=== PATIENT | male | born 1935 | race Caucasian/White ===

== ENCOUNTER → 2019-02-19 | Outpatient (CLI) | payer MEDICARE ==
[~2019-02-19] MED LIST: LEVO125T5 PO; OMEP10CA5 PO; POLY17PO5 PO
== END | disposition home or self-care (01) ==
LOC: RAD 06:45
PROVIDERS: ATTEND Pathology Hematology
DX: C15.5 Malignant neoplasm of lower third of esophagus (principal); K21.9 Gastro-esophageal reflux disease without esophagitis; E03.9 Hypothyroidism, unspecified; Z79.890 Hormone replacement therapy; Z79.899 Other long term (current) drug therapy; Z98.52 Vasectomy status; Z98.890 Other specified postprocedural states; Z80.1 Family history of malignant neoplasm of trachea, bronchus and lung
CPT/HCPCS: 36573; C1751

== ENCOUNTER 2019-04-06 08:03 | Outpatient (CLI) | payer MEDICARE ==
[2019-03-16 18:15] VITALS: BP 97/65
[~2019-04-06 08:03] MED LIST changes: +MIDO2.5T PO
== END 2019-04-06 23:59 | disposition home or self-care (01) ==
LOC: ROC 08:03
PROVIDERS: ATTEND Radiology Radiation Oncology
DX: C15.5 Malignant neoplasm of lower third of esophagus (principal)
CPT/HCPCS: G0463

== ENCOUNTER → 2019-04-19 | Outpatient (CLI) | payer MEDICARE | END | disposition home or self-care (01) | LOC: RAD 17:11 | PROVIDERS: ATTEND Nurse Practitioner | DX: M48.56XA Collapsed vertebra, not elsewhere classified, lumbar region, initial encounter for fracture (principal); M43.8X6 Other specified deforming dorsopathies, lumbar region; M48.061 Spinal stenosis, lumbar region without neurogenic claudication; M51.36 Other intervertebral disc degeneration, lumbar region; M25.78 Osteophyte, vertebrae; M47.896 Other spondylosis, lumbar region; M47.897 Other spondylosis, lumbosacral region; X58.XXXA Exposure to other specified factors, initial encounter; Y93.89 Activity, other specified; Y92.89 Other specified places as the place of occurrence of the external cause; Y99.8 Other external cause status | CPT/HCPCS: 72131 ==

== ENCOUNTER 2019-04-24 17:29 | Inpatient (IN) | payer MEDICARE ==
[~2019-04-24] VITALS: Ht 175.3 cm; Wt 66.8 kg
[2019-04-24] MEDS ORDERED: SODIUM CHLORIDE 0.9% 1,000 ML IV ONE (17:48)
--- NOTE | 2019-04-24 17:50 | NUR ---
patient brought to room via wheelchair, on monitor/placed in gown. given blankets, HOB at 90 degree to improve patient comfort. RN/MD at bedside.
[2019-04-24 18:11] LABS: BASOPHILS # (AUTO) 0.02 x10^3/uL (0-0.1); BASOPHILS % (AUTO) 1 % (0-1); EOSINOPHILS # (AUTO) 0.12 x10^3/uL (0-0.4); EOSINOPHILS % (AUTO) 3 % (1-7); LYMPHOCYTES # (AUTO) 0.84 x10^3/uL (1-3.4); LYMPHOCYTES % (AUTO) 17 % (22-44); MD NO; MEAN CORPUSCULAR HEMOGLOBIN 36.3 pg (27.5-34.5); MEAN CORPUSCULAR HGB CONC 33.6 g/dL (33.2-36.2); MEAN PLATELET VOLUME 6.3 fL (7.4-10.4); MONOCYTES # (AUTO) 0.48 x10^3/uL (0.2-0.8); MONOCYTES % (AUTO) 10 % (2-9); NEUTROPHILS # (AUTO) 3.41 x10^3/uL (1.8-6.8); NEUTROPHILS % (AUTO) 70 % (42-75); PLATELET COUNT 212 x10^3/uL (130-400); RED CELL DISTRIBUTION WIDTH 17.5 % (9.4-14.8)
--- NOTE | 2019-04-24 18:11 | NUR ---
LUNCH RN: PT PRESENTING WITH CONCERNED DAUGHTER FOR RECURRENT HYPOTENSION AND SYNCOPAL EPISODES WORSENING OVER LAST WEEK. PT DOESNT REMEMBER THESE EVENTS. NO N/V, DARK STOOLS, DIZZINESS REPORTED. 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 CONNECTED TO ALL MONITORING, VSS AT THIS TIME. A&OX4. FAMILY AT BEDSIDE. ORDERS RECEIVED. IV PLACED, LABS DRAWN. RAD COMPLETED. CALL LIGHT WITHIN REACH REPORT GIVEN TO PRIMARY RNLIZA.
--- NOTE | 2019-04-24 18:16 | NUR ---
report from Sophie Desouza RN. ivf started. vss. no needs expressed. call light within reach. pt resting in room with family at bs. awaiting cta.
[2019-04-24 18:24] LABS: ALANINE AMINOTRANSFERASE 25 U/L (12-78); ALBUMIN 3.3 g/dL (3.4-5.0); ANION GAP 6 mmol/L (5-15); CHLORIDE 106 mmol/L (98-107); CREATININE 1.46 mg/dL (0.7-1.3)
[2019-04-24 18:27] LABS: ALKALINE PHOSPHATASE 58 U/L (45-117); BILIRUBIN,TOTAL 0.6 mg/dL (0.2-1.0); TOTAL PROTEIN 7.1 g/dL (6.4-8.2); TROPONIN I < 0.015 ng/mL (0.000-0.045)
[2019-04-24] MEDS ORDERED: OMNIPAQUE 350 MG/ML, 100ML BOTTLE ONE (19:02)
--- NOTE | 2019-04-24 20:31 | NUR ---
pt resting in room. vss. no needs expressed. call light within reach. awaiting room assignment.
--- NOTE | 2019-04-24 20:48 | NUR ---
pt resting in room wtih family at bs. vss. bp improved. ivf running. no needs expressed. call light within reach. awaiting room assginment.
[2019-04-24] MEDS ORDERED: PROMETHAZINE 25 MG/ML, 1ML IM PRN (21:00)
[2019-04-24] MEDS ORDERED: POLYETHYLENE GLYCOL 17 GM PACKET PO PRN (21:00)
[2019-04-24] MEDS ORDERED: ACETAMINOPHEN 325 MG TABLET PO PRN (21:00)
[2019-04-24] MEDS ORDERED: morphine SULFATE 10 MG/ML, 1ML IVPush PRN (21:00)
[2019-04-24] MEDS ORDERED: ONDANSETRON ODT 4 MG PO PRN (21:00)
[2019-04-24] MEDS ORDERED: BISACODYL 10 MG SUPP PR PRN (21:00)
[2019-04-24] MEDS ORDERED: ONDANSETRON 2MG/ML, 2ML IVPush PRN (21:00)
[2019-04-24] MEDS ORDERED: hydrALAzine 20 MG/ML, 1ML IVPush PRN (21:00)
[2019-04-24 21:27] LABS: FREE T4 (FREE THYROXINE) 1.07 ng/dL (0.76-1.46)
--- NOTE | 2019-04-24 22:12 | NUR ---
reprot to [facility]. pt ready for transport.
[2019-04-24 22:33] VITALS: BP 132/84
[2019-04-24] MEDS: HEPARIN 5,000 UNITS/ML, 1ML SQ SCH (23:25)
[2019-04-24] MEDS: SODIUM CHLORIDE 0.9% 1,000 ML IV SCH (23:26)
[2019-04-24] MEDS: MIDODRINE 5 MG TABLET PO SCH (23:26)
[2019-04-24] MEDS: OXYcodone IR 5MG TABLET PO PRN (23:27)
[2019-04-25 00:08] LABS: MICROSCOPIC NOT IND
[2019-04-25 00:10] LABS: CULTURE INDICATED? NO
[2019-04-25] MEDS: LEVOTHYROXINE 125 MCG TABLET PO SCH (05:33)
[2019-04-25 06:16] LABS: BASOPHILS # (AUTO) 0.02 x10^3/uL (0-0.1); BASOPHILS % (AUTO) 1 % (0-1); EOSINOPHILS # (AUTO) 0.23 x10^3/uL (0-0.4); EOSINOPHILS % (AUTO) 6 % (1-7); LYMPHOCYTES # (AUTO) 0.72 x10^3/uL (1-3.4); LYMPHOCYTES % (AUTO) 20 % (22-44); MD NO; MEAN CORPUSCULAR HEMOGLOBIN 36.5 pg (27.5-34.5); MEAN CORPUSCULAR VOLUME 107.4 fL (81-97); MEAN PLATELET VOLUME 6.3 fL (7.4-10.4); MONOCYTES # (AUTO) 0.41 x10^3/uL (0.2-0.8); MONOCYTES % (AUTO) 12 % (2-9); NEUTROPHILS # (AUTO) 2.21 x10^3/uL (1.8-6.8); NEUTROPHILS % (AUTO) 62 % (42-75); PLATELET COUNT 166 x10^3/uL (130-400); RED BLOOD COUNT 3.05 x10^6/uL (4.38-5.82); RED CELL DISTRIBUTION WIDTH 17.1 % (9.4-14.8)
[2019-04-25 06:23] LABS: ALBUMIN 2.8 g/dL (3.4-5.0); ANION GAP 8 mmol/L (5-15); CALCIUM 7.9 mg/dL (8.5-10.1); CHLORIDE 110 mmol/L (98-107)
[2019-04-25 06:26] LABS: ALANINE AMINOTRANSFERASE 16 U/L (12-78); ALKALINE PHOSPHATASE 49 U/L (45-117); BILIRUBIN,TOTAL 0.5 mg/dL (0.2-1.0); CHOL/HDL RATIO 3.6; CHOLESTEROL, TOTAL 128 mg/dL (140-239); CREATININE 1.11 mg/dL (0.7-1.3); HDL CHOL % 28 % (26-37); HDL CHOLESTEROL (DIRECT) 36 mg/dL (40-60); LDL CHOLESTEROL,CALCULATED 76 mg/dL (54-169); LDL/HDL RATIO 2.1 (0.5-3.0); TOTAL PROTEIN 5.7 g/dL (6.4-8.2); TRIGLYCERIDES 80 mg/dL (50-200); VLDL CHOLESTEROL 16 mg/dL (0-25)
[2019-04-25 07:15] VITALS: BP 95/57
[2019-04-25] MEDS: SODIUM CHLORIDE 0.9% 1,000 ML IV SCH (08:00)
[2019-04-25] MEDS ORDERED: LEVOTHYROXINE 125 MCG TABLET PO SCH (09:00)
[2019-04-25] MEDS: POLYETHYLENE GLYCOL 17 GM PACKET PO SCH (09:00)
[2019-04-25] MEDS: DOCUSATE 100 MG CAPSULE PO PRN (09:19)
[2019-04-25] MEDS: HEPARIN 5,000 UNITS/ML, 1ML SQ SCH ×3 (09:20→22:32)
[2019-04-25] MEDS: OMEPRAZOLE 10 MG CAPSULE.DR PO SCH (09:20)
[2019-04-25 09:24] VITALS: BP 112/74
[2019-04-25 09:25] VITALS: BP 94/56
[2019-04-25 09:28] VITALS: BP 83/49
[2019-04-25] MEDS: MIDODRINE 5 MG TABLET PO SCH ×3 (09:36→21:06)
[2019-04-25 15:49] VITALS: BP 136/85
[2019-04-25 19:48] VITALS: BP 129/77
[2019-04-25] MEDS: OXYcodone IR 5MG TABLET PO PRN (23:10)
[2019-04-26] MEDS: SODIUM CHLORIDE 0.9% 1,000 ML IV SCH ×3 (01:27→16:00)
[2019-04-26 01:49] VITALS: BP 120/82
[2019-04-26] MEDS: LEVOTHYROXINE 125 MCG TABLET PO SCH (03:30)
[2019-04-26] MEDS: OXYcodone IR 5MG TABLET PO PRN ×2 (03:30→21:02)
[2019-04-26 07:10] LABS: ANION GAP 7 mmol/L (5-15); CALCIUM 8.1 mg/dL (8.5-10.1); CHLORIDE 110 mmol/L (98-107)
[2019-04-26 07:11] LABS: CREATININE 1.13 mg/dL (0.7-1.3); MEAN CORPUSCULAR HEMOGLOBIN 37.1 pg (27.5-34.5); MEAN CORPUSCULAR HGB CONC 34.6 g/dL (33.2-36.2); MEAN CORPUSCULAR VOLUME 107.1 fL (81-97); RED BLOOD COUNT 2.88 x10^6/uL (4.38-5.82); RED CELL DISTRIBUTION WIDTH 17.4 % (9.4-14.8)
[2019-04-26 07:55] LABS: BASOPHILS # (AUTO) 0.03 x10^3/uL (0-0.1); BASOPHILS % (AUTO) 1 % (0-1); EOSINOPHILS # (AUTO) 0.22 x10^3/uL (0-0.4); EOSINOPHILS % (AUTO) 6 % (1-7); LYMPHOCYTES # (AUTO) 0.69 x10^3/uL (1-3.4); LYMPHOCYTES % (AUTO) 19 % (22-44); MD SCAN; MEAN PLATELET VOLUME 6.9 fL (7.4-10.4); MONOCYTES % (AUTO) 11 % (2-9); NEUTROPHILS # (AUTO) 2.24 x10^3/uL (1.8-6.8); NEUTROPHILS % (AUTO) 63 % (42-75); PLATELET COUNT 148 x10^3/uL (130-400)
[2019-04-26] MEDS: OMEPRAZOLE 10 MG CAPSULE.DR PO SCH (08:42)
[2019-04-26] MEDS: DOCUSATE 100 MG CAPSULE PO PRN (08:42)
[2019-04-26] MEDS: MIDODRINE 5 MG TABLET PO SCH ×3 (08:43→21:01)
[2019-04-26] MEDS: POLYETHYLENE GLYCOL 17 GM PACKET PO SCH (08:43)
[2019-04-26] MEDS: HEPARIN 5,000 UNITS/ML, 1ML SQ SCH ×3 (08:43→23:19)
[2019-04-26 08:48] VITALS: BP 92/65
[2019-04-26 15:21] VITALS: BP 128/78
[2019-04-26 19:58] VITALS: BP 135/81
[2019-04-27 01:15] VITALS: BP 122/69
[2019-04-27] MEDS: OXYcodone IR 5MG TABLET PO PRN (04:20)
[2019-04-27] MEDS: LEVOTHYROXINE 125 MCG TABLET PO SCH (04:20)
[2019-04-27] MEDS ORDERED: ONDA4TAB13 PO (05:31)
[2019-04-27] MEDS ORDERED: SIMV10TA PO (06:23)
[2019-04-27 07:31] VITALS: BP 107/67
[2019-04-27] MEDS: MIDODRINE 5 MG TABLET PO SCH (07:44)
[2019-04-27] MEDS: OMEPRAZOLE 10 MG CAPSULE.DR PO SCH (07:44)
[2019-04-27] MEDS: DOCUSATE 100 MG CAPSULE PO PRN (07:44)
[2019-04-27] MEDS: HEPARIN 5,000 UNITS/ML, 1ML SQ SCH (07:45)
[2019-04-27] MEDS: POLYETHYLENE GLYCOL 17 GM PACKET PO SCH (07:45)
[2019-04-27] MEDS ORDERED: MIDO2.5T PO (11:22)
== END 2019-04-27 13:30 | DRG 682 ==
LOC: ED 19:36 → EDIP 20:29 → 4WST 22:21
PROVIDERS: ADMIT Internal Medicine; ATTEND Internal Medicine
DX: N17.0 Acute kidney failure with tubular necrosis (principal); E43 Unspecified severe protein-calorie malnutrition; C15.9 Malignant neoplasm of esophagus, unspecified; I95.1 Orthostatic hypotension; E03.9 Hypothyroidism, unspecified; Z68.21 Body mass index [BMI] 21.0-21.9, adult; E86.0 Dehydration; I10 Essential (primary) hypertension; I35.8 Other nonrheumatic aortic valve disorders; J44.9 Chronic obstructive pulmonary disease, unspecified; K21.9 Gastro-esophageal reflux disease without esophagitis; Z80.0 Family history of malignant neoplasm of digestive organs; Z80.1 Family history of malignant neoplasm of trachea, bronchus and lung; Z80.7 Family history of other malignant neoplasms of lymphoid, hematopoietic and related tissues; Z80.8 Family history of malignant neoplasm of other organs or systems; Z85.01 Personal history of malignant neoplasm of esophagus; Z87.891 Personal history of nicotine dependence; Z92.21 Personal history of antineoplastic chemotherapy; Z92.3 Personal history of irradiation
CPT/HCPCS: 36415; 71045; 71275; 80048; 80053; 80061; 81003; 82533; 83036; 83735; 83880; 84439; 84443; 84484; 85025; 87040; 93005; 93306; 93356; 93880; 99285; G0378; J1644; Q9967; J7030

== ENCOUNTER → 2019-05-08 | Outpatient (CLI) | payer MEDICARE ==
[~2019-05-08] MED LIST changes: +GADOTERATE 7.5 MMOL/15 ML SYR ONE; +OMNIPAQUE 350 MG/ML, 100ML BOTTLE ONE; +ONDA4TAB13 PO; +SIMV10TA PO
== END | disposition home or self-care (01) ==
LOC: CFH 09:32
PROVIDERS: ATTEND Radiology Radiation Oncology
DX: M43.17 Spondylolisthesis, lumbosacral region (principal); N28.1 Cyst of kidney, acquired; M48.07 Spinal stenosis, lumbosacral region; M51.36 Other intervertebral disc degeneration, lumbar region; M47.817 Spondylosis without myelopathy or radiculopathy, lumbosacral region; M48.56XA Collapsed vertebra, not elsewhere classified, lumbar region, initial encounter for fracture
CPT/HCPCS: 71260; 72158; 74177; A9575; Q9967

== ENCOUNTER 2019-05-17 05:41 | Day surgery (SDC) | payer MEDICARE ==
[~2019-05-17] VITALS: Ht 175.3 cm; Wt 62.6 kg
[~2019-05-17 05:41] MED LIST changes: -GADOTERATE 7.5 MMOL/15 ML SYR ONE; +GI cocktail PO; +HYDR1TAB15 PO; -OMNIPAQUE 350 MG/ML, 100ML BOTTLE ONE; +SUCR1TAB33 PO; +multivitamin PO
[2019-05-17] MEDS ORDERED: LACTATED RINGERS 1,000 ML IV SCH (06:07)
[2019-05-17] MEDS ORDERED: FENTANYL PF 250 MCG/5ML ONE (06:25)
[2019-05-17] MEDS ORDERED: ACETAMINOPHEN 500 MG TABLET PO ONE (06:30)
[2019-05-17] MEDS ORDERED: GABAPENTIN 300 MG CAPSULE PO ONE (06:30)
[2019-05-17 06:40] VITALS: BP 97/66
[2019-05-17] MEDS ORDERED: EPINEPHRINE 1 MG/ML, 1ML ONE (06:55)
[2019-05-17] MEDS ORDERED: methylPREDNISolone *ACETATE* 40 MG/ML ONE (06:55)
[2019-05-17] MEDS ORDERED: BACITRACIN OINT 500U/GM, 15 GM ONE (06:55)
[2019-05-17] MEDS ORDERED: BACITRACIN 50,000 UNIT ONE (06:55)
[2019-05-17] MEDS ORDERED: VANCOMYCIN 1,000 MG ONE (06:55)
[2019-05-17] MEDS ORDERED: BUPIVACAINE/PF 0.5% ONE (06:55)
[2019-05-17] MEDS ORDERED: FENTANYL PF 100 MCG/2ML IV PRN (07:00)
[2019-05-17] MEDS ORDERED: MORPHINE SULFATE 4 MG/ML, 1ML IVPush PRN (07:00)
[2019-05-17] MEDS ORDERED: ONDANSETRON 2MG/ML, 2ML IV PRN (07:00)
[2019-05-17] MEDS ORDERED: hydrALAzine 20 MG/ML, 1ML IV PRN (07:00)
[2019-05-17] MEDS ORDERED: HYDROmorphone 2 MG/ML, 1ML IVPush PRN (07:00)
[2019-05-17] MEDS ORDERED: OXYcodone 5 MG/5 ML ORAL.SOL UDC PO PRN (07:00)
[2019-05-17] MEDS ORDERED: MEPERIDINE/PF 25MG/ML,1ML IVPush PRN (07:00)
[2019-05-17] MEDS ORDERED: LABETALOL 5MG/ML, 20ML IV PRN (07:00)
[2019-05-17] MEDS ORDERED: OMNIPAQUE 180 MG/ML, 20ML VIAL IT ONE (08:09)
[2019-05-17] MEDS ORDERED: ROCURONIUM 10MG/ML,5ML ONE (08:12)
[2019-05-17] MEDS ORDERED: NEOSTIGMINE 1 MG/ML, 10ML ONE (08:12)
[2019-05-17] MEDS ORDERED: CEFAZOLIN 1,000 MG ONE (08:12)
[2019-05-17] MEDS ORDERED: GLYCOPYRROLATE 0.2MG/1ML, 5ML ONE (08:12)
[2019-05-17] MEDS ORDERED: PROPOFOL 10 MG/ML, 20ML ONE (08:12)
[2019-05-17] MEDS ORDERED: OMNIPAQUE 180 MG/ML, 20ML VIAL ONE (08:43)
[2019-05-17] MEDS ORDERED: MIDODRINE 5 MG TABLET PO SCH (09:00)
[2019-05-17] MEDS ORDERED: SUCRALFATE 1 GM TABLET PO SCH (09:00)
[2019-05-17] MEDS ORDERED: OMEPRAZOLE 20 MG CAPSULE.DR PO SCH (09:00)
[2019-05-17] MEDS ORDERED: LEVOTHYROXINE 125 MCG TABLET PO SCH (09:00)
== END 2019-05-17 11:30 | disposition home or self-care (01) ==
LOC: OUT 05:41
PROVIDERS: ATTEND Neurological Surgery
DX: M48.56XA Collapsed vertebra, not elsewhere classified, lumbar region, initial encounter for fracture (principal); E03.9 Hypothyroidism, unspecified; K21.9 Gastro-esophageal reflux disease without esophagitis; I10 Essential (primary) hypertension
CPT/HCPCS: 22514; 36415; 72072; 86850; 86900; 88307; 88311; 93005; C1713; J0171; J0690; J2704; J2710; J3010; J7120; Q9965; J3370; J1030

== ENCOUNTER 2019-05-22 05:49 | Day surgery (SDC) | payer MEDICARE ==
[~2019-05-22] VITALS: Ht 175.3 cm; Wt 61.9 kg
[2019-05-22 07:00] VITALS: BP 94/50
[2019-05-22] MEDS ORDERED: LACTATED RINGERS 1,000 ML IV SCH (07:03)
[2019-05-22] MEDS ORDERED: CEPH-376 PO (07:32)
[2019-05-22] MEDS ORDERED: PROPOFOL 50 ML ONE (07:41)
[2019-05-22] MEDS ORDERED: PROPOFOL 10 MG/ML, 20ML ONE (08:15)
[2019-05-22] MEDS ORDERED: EPHEDRINE 50 MG/ML, 1ML IM PRN (08:30)
[2019-05-22] MEDS ORDERED: DIAZEPAM 5 MG/ML, 2ML IVPush PRN (08:30)
[2019-05-22] MEDS ORDERED: ONDANSETRON ODT 8 MG PO PRN (08:30)
[2019-05-22] MEDS ORDERED: ONDANSETRON 2MG/ML, 2ML IV PRN (08:30)
[2019-05-22] MEDS ORDERED: FENTANYL PF 100 MCG/2ML IV PRN (08:30)
[2019-05-22] MEDS ORDERED: EPHEDRINE 50 MG/ML, 1ML ONE (08:55)
[2019-05-22] MEDS ORDERED: EPHEDRINE 50 MG/ML, 1ML IVPush ONE (09:00)
== END 2019-05-22 11:30 | disposition home or self-care (01) ==
LOC: OUT 05:49
PROVIDERS: ATTEND Internal Medicine
DX: C15.9 Malignant neoplasm of esophagus, unspecified (principal); K44.9 Diaphragmatic hernia without obstruction or gangrene; K22.10 Ulcer of esophagus without bleeding; J44.9 Chronic obstructive pulmonary disease, unspecified; Z87.891 Personal history of nicotine dependence
CPT/HCPCS: 43237; 43239; 88305; 88312; J2704; J7120

== ENCOUNTER → 2019-05-28 | Outpatient (CLI) | payer MEDICARE ==
[~2019-05-28] MED LIST changes: +CEPH-376 PO
== END | disposition home or self-care (01) ==
LOC: ROC 08:46
PROVIDERS: ATTEND Radiology Radiation Oncology
DX: C15.5 Malignant neoplasm of lower third of esophagus (principal); Z88.1 Allergy status to other antibiotic agents; Z88.8 Allergy status to other drugs, medicaments and biological substances
CPT/HCPCS: G0463

== ENCOUNTER 2019-06-21 15:11 | Outpatient (CLI) | payer MEDICARE | END 2019-06-21 23:59 | disposition home or self-care (01) | LOC: STAR 15:11 | PROVIDERS: ATTEND Internal Medicine | DX: Z02.9 Encounter for administrative examinations, unspecified (principal) ==

== ENCOUNTER 2019-06-28 10:46 | Day surgery (SDC) | payer MEDICARE ==
[~2019-06-28] VITALS: Ht 175.3 cm; Wt 64.1 kg
[2019-06-28 11:18] VITALS: BP 90/65
[2019-06-28] MEDS ORDERED: LACTATED RINGERS 1,000 ML IV SCH (11:22)
[2019-06-28] MEDS ORDERED: FENTANYL PF 100 MCG/2ML ONE (14:11)
[2019-06-28] MEDS: FENTANYL PF 100 MCG/2ML IV PRN ×3 (14:12→14:36)
[2019-06-28] MEDS ORDERED: MIDAZOLAM 1 MG/ML, 2ML IV PRN (14:30)
[2019-06-28] MEDS ORDERED: ONDANSETRON 2MG/ML, 2ML IV PRN (14:30)
[2019-06-28] MEDS ORDERED: ACETAMINOPHEN 325 MG TABLET PO PRN (14:30)
[2019-06-28] MEDS ORDERED: PROPOFOL 10 MG/ML, 50ML ONE (15:12)
[2019-06-28] MEDS ORDERED: MAALOX/HYOSCYAMINE/LIDOCAINE 45 ML BTL PO STA (15:13)
== END 2019-06-28 17:20 | disposition home or self-care (01) ==
LOC: OUT 10:46
PROVIDERS: ATTEND Internal Medicine
DX: K22.710 Barrett's esophagus with low grade dysplasia (principal); K44.9 Diaphragmatic hernia without obstruction or gangrene; E03.9 Hypothyroidism, unspecified; Z79.890 Hormone replacement therapy; Z79.899 Other long term (current) drug therapy; Z87.891 Personal history of nicotine dependence; Z85.01 Personal history of malignant neoplasm of esophagus; Z88.8 Allergy status to other drugs, medicaments and biological substances; Z90.79 Acquired absence of other genital organ(s); Z92.21 Personal history of antineoplastic chemotherapy; Z92.3 Personal history of irradiation; Z98.890 Other specified postprocedural states; Z82.3 Family history of stroke; Z80.9 Family history of malignant neoplasm, unspecified
CPT/HCPCS: 43270; 71045; 93005; J2704; J3010; J7120

== ENCOUNTER → 2019-10-26 | Outpatient (CLI) | payer MEDICARE | END | disposition home or self-care (01) | LOC: STAR 08:01 | PROVIDERS: ATTEND Internal Medicine | DX: Z01.818 Encounter for other preprocedural examination (principal); K22.70 Barrett's esophagus without dysplasia; Z85.01 Personal history of malignant neoplasm of esophagus; Z88.1 Allergy status to other antibiotic agents | CPT/HCPCS: 93005 ==

== ENCOUNTER → 2019-12-21 | Outpatient (CLI) | payer MEDICARE | END | disposition home or self-care (01) | LOC: CFH 15:14 | PROVIDERS: ATTEND Nurse Practitioner | DX: S22.080A Wedge compression fracture of T11-T12 vertebra, initial encounter for closed fracture (principal); S32.020A Wedge compression fracture of second lumbar vertebra, initial encounter for closed fracture; M43.06 Spondylolysis, lumbar region; M48.061 Spinal stenosis, lumbar region without neurogenic claudication; X58.XXXA Exposure to other specified factors, initial encounter; Y93.89 Activity, other specified; Y92.89 Other specified places as the place of occurrence of the external cause; Y99.8 Other external cause status | CPT/HCPCS: 72131 ==

== ENCOUNTER 2020-01-11 17:01 | Outpatient (CLI) | payer MEDICARE ==
[~2020-01-11 17:01] MED LIST changes: +OMEP40CA42 PO
[2020-01-17] MEDS ORDERED: GABA300C PO (12:28)
[2020-01-17] MEDS ORDERED: ACET500T64 PO (12:28)
[2020-01-17] MEDS ORDERED: LIDO700A20 TD (12:28)
== END 2020-01-11 23:59 | disposition home or self-care (01) ==
LOC: RAD 17:01
PROVIDERS: ATTEND Nurse Practitioner
DX: R10.2 Pelvic and perineal pain (principal); M25.551 Pain in right hip
CPT/HCPCS: 72195

== ENCOUNTER 2020-12-26 13:59 | Emergency (ER) | payer BC, MEDICARE ==
[~2020-12-26] VITALS: Ht 175.3 cm; Wt 63.0 kg
[~2020-12-26 13:59] MED LIST changes: +ACET500T64 PO; +GABA300C PO; +LIDO700A20 TD; -OMEP40CA42 PO; +OMEP40CA8 PO
[2020-12-26] MEDS ORDERED: CASIRIVIMAB 600 MG, IMDEVIMAB (REGN10987) 600 MG in SODIUM CHLORIDE 0.9% 250 ML IVPB ONE (18:30)
[2020-12-26] MEDS ORDERED: FILTER 0.22 MICRON IV ONE (18:30)
[2020-12-26] MEDS ORDERED: ZINC SULFATE 220 MG CAPSULE PO STA (20:54)
[2020-12-26] MEDS ORDERED: IBUPROFEN 600 MG TABLET ONE (21:00)
[2020-12-26] MEDS ORDERED: ZINC SULFATE 220 MG CAPSULE ONE (21:00)
[2020-12-26] MEDS ORDERED: IBUPROFEN 200 MG TABLET PO ONE (21:00)
[2020-12-26] MEDS ORDERED: ZINC SULFATE 220 MG CAPSULE PO ONE (21:30)
--- NOTE | 2020-12-26 22:01 | NUR ---
PT RESTING IN BED. PT DENIED ANY CURRENT WANTS OR NEEDS. PT AWARE OF CARE PLAN. PT VSS WITH UNLABORED BREATHS
--- NOTE | 2020-12-26 23:04 | NUR ---
PT A/O X4 WITH NO SIGNS OF REACTION. PT GOING HOME WITH DAUGHTER WHO IS RN. PT HAS EQUAL AND UNLABORED BREATHS WITH PT VSS,
[2020-12-26 23:05] VITALS: BP 116/78
== END 2020-12-26 23:08 | disposition home or self-care (01) ==
LOC: ED 14:30
DX: U07.1 COVID-19 (principal)
CPT/HCPCS: 71046; 99285; M0243